=== PATIENT | female | born 2000 | race Two or more races ===

== ENCOUNTER → 2023-12-25 | Outpatient (CLI) | payer BC ==
[2023-12-25 10:33] LABS: Basophils # (auto) 0 10 ^3/uL (0-0.2); Basophils % (auto) 0.5 % (0.0-2.0); Eosinophils # (auto) 0 10 ^3/uL (0-0.8); Eosinophils % (auto) 0.6 % (0.0-7.0); Hemoglobin 13.2 g/dL (12.2-16.2); Lymphocytes # (auto) 1.6 10 ^3/uL (0.4-5.4); Lymphocytes % (auto) 21.8 % (10.0-50.0); Mean Corpuscular Hemoglobin 30.9 pg (28.0-32.0); Mean Corpuscular Hgb Conc. 33.9 g/dL (32.0-36.0); Mean Corpuscular Volume 91.3 fL (80.0-100.0); Monocytes # (auto) 0.6 10 ^3/uL (0-1.3); Monocytes % (auto) 8.1 % (0.0-12.0); Neutrophils # (auto) 5.1 10 ^3/uL (1.6-8.6); Platelet Count (auto) 309 10^3/uL (140-450); Red Blood Cells 4.28 10^6/uL (4.0-5.20); Red Cell Distribution Width 12.9 % (11.8-14.3); White Blood Cell 7.4 10^3/uL (4.4-10.8)
[2023-12-25 11:15] LABS: Alanine Aminotransferase 12 U/L (7-40); Albumin 4.6 g/dL (3.2-4.8); Alkaline Phosphatase 52 U/L (46-116); Anion Gap 6 (5-15); Aspartate Aminotransferase 12 U/L (13-40); Blood Urea Nitrogen 8 mg/dL (9-23); Carbon Dioxide 25 mmol/L (20-30); Chloride 105 mmol/L (98-107); Cholesterol 168 mg/dL (< 200); Glucose 86 mg/dL (74-106); HDL Cholesterol 69 mg/dL (40-59); LDL Cholesterol 89 mg/dL (< 100); Potassium 3.7 mmol/L (3.5-5.1); Sodium 136 mmol/L (136-145); Triglycerides 63 mg/dL (< 150)
[2023-12-25 11:16] LABS: Bilirubin, Total 0.7 mg/dL (0.2-1.0); Total Protein 7.3 g/dL (5.7-8.2)
[2023-12-25 11:18] LABS: Thyroid Stimulating Hormone 1.91 uIU/mL (0.358-3.74)
[2023-12-25 11:22] LABS: Amphetamine Screen, Urine Neg (NEGATIVE); Barbiturate Scree,Urine Neg (NEGATIVE); Benzodiazephine Screen, Urine Neg (NEGATIVE); Cocaine Screen, Urine Neg (NEGATIVE); Opiate Scree,Urine Neg (NEGATIVE)
[2023-12-25 11:23] LABS: Phencyclidine Screen, Urine Neg (NEGATIVE)
[2023-12-25 11:25] LABS: Beta HCG, Quantitative 14993.2 mIU/mL (1.5-4.2)
[2023-12-25 11:37] LABS: Cannabinoid Screen, Urine Neg (NEGATIVE)
[2023-12-26 07:06] LABS: RPR Non Reactive (Non Reactive)
[2023-12-26 08:06] LABS: Varicella Zoster IgG Antibody <135 index (Immune >165)
[2023-12-26 23:06] LABS: Chlamydia Trachomatis, NAA Negative (Negative); Neisseria gonorrhoeae, NAA Negative (Negative)
== END | disposition home or self-care (01) ==
LOC: LAB 10:00
PROVIDERS: ATTEND Obstetrics & Gynecology
DX: Z11.3 Encounter for screening for infections with a predominantly sexual mode of transmission (principal); N39.0 Urinary tract infection, site not specified
CPT/HCPCS: 36415; 80053; 80061; 80307; 83036; 84439; 84443; 84702; 85025; 86592; 86703; 86762; 86787; 86850; 86900; 86901; 87086; 87340

== ENCOUNTER → 2024-02-23 | Outpatient (CLI) | payer BC ==
[2024-02-23 07:55] LABS: Alanine Aminotransferase 20 U/L (7-40); Aspartate Aminotransferase 24 U/L (13-40)
== END | disposition home or self-care (01) ==
LOC: LAB 05:43
PROVIDERS: ATTEND Emergency Medicine
DX: L29.9 Pruritus, unspecified (principal)
CPT/HCPCS: 36415; 84450; 84460

== ENCOUNTER → 2024-05-21 | Outpatient (CLI) | payer BC ==
[2024-05-21 08:40] LABS: Basophils # (auto) 0.1 10 ^3/uL (0-0.2); Basophils % (auto) 0.6 % (0.0-2.0); Eosinophils # (auto) 0.1 10 ^3/uL (0-0.8); Hemoglobin 12.7 g/dL (12.2-16.2); Lymphocytes # (auto) 2.2 10 ^3/uL (0.4-5.4); Lymphocytes % (auto) 20.8 % (10.0-50.0); Mean Corpuscular Hemoglobin 31.8 pg (28.0-32.0); Mean Corpuscular Hgb Conc. 34.2 g/dL (32.0-36.0); Mean Corpuscular Volume 93.1 fL (80.0-100.0); Monocytes # (auto) 0.8 10 ^3/uL (0-1.3); Monocytes % (auto) 7.1 % (0.0-12.0); Neutrophils # (auto) 7.5 10 ^3/uL (1.6-8.6); Neutrophils % (auto) 70.5 % (37.0-80.0); Platelet Count (auto) 368 10^3/uL (140-450); Red Blood Cells 3.98 10^6/uL (4.0-5.20); Red Cell Distribution Width 12.9 % (11.8-14.3); White Blood Cell 10.6 10^3/uL (4.4-10.8)
[2024-05-21 08:57] LABS: Alanine Aminotransferase 32 U/L (7-40); Albumin 4.6 g/dL (3.2-4.8); Alkaline Phosphatase 100 U/L (46-116); Anion Gap 8 (5-15); BUN/Creatinine Ratio 11.1 (10.0-20.0); Calcium 10.1 mg/dL (8.7-10.4); Carbon Dioxide 26 mmol/L (20-31); Chloride 103 mmol/L (98-107); Glucose 82 mg/dL (74-106); Sodium 137 mmol/L (136-145)
[2024-05-21 08:58] LABS: Bilirubin, Total 0.5 mg/dL (0.2-1.0); Total Protein 7.1 g/dL (5.7-8.2)
[2024-05-21 09:04] LABS: Aspartate Aminotransferase 11 U/L (13-40); Blood Urea Nitrogen 7 mg/dL (9-23)
[2024-05-22 06:06] LABS: RPR Non Reactive (Non Reactive)
[2024-05-22 22:06] LABS: Chlamydia Trachomatis, NAA Negative (Negative); Neisseria gonorrhoeae, NAA Negative (Negative)
== END | disposition home or self-care (01) ==
LOC: LAB 08:27
PROVIDERS: ATTEND Obstetrics & Gynecology
DX: Z34.00 Encounter for supervision of normal first pregnancy, unspecified trimester (principal)
CPT/HCPCS: 36415; 80053; 82951; 83036; 85025; 86592; 86850; 86900; 86901

== ENCOUNTER → 2024-06-30 | Outpatient (CLI) | payer BC ==
[2024-06-30 14:19] LABS: Basophils # (auto) 0 10 ^3/uL (0-0.2); Basophils % (auto) 0.1 % (0.0-2.0); Eosinophils # (auto) 0 10 ^3/uL (0-0.8); Eosinophils % (auto) 0.4 % (0.0-7.0); Hematocrit 33.1 % (36.0-46.0); Lymphocytes # (auto) 1.6 10 ^3/uL (0.4-5.4); Lymphocytes % (auto) 13.3 % (10.0-50.0); Mean Corpuscular Hemoglobin 29.7 pg (28.0-32.0); Mean Corpuscular Hgb Conc. 33.4 g/dL (32.0-36.0); Monocytes % (auto) 8.8 % (0.0-12.0); Neutrophils # (auto) 9.1 10 ^3/uL (1.6-8.6); Neutrophils % (auto) 77.4 % (37.0-80.0); Platelet Count (auto) 348 10^3/uL (140-450); Red Blood Cells 3.72 10^6/uL (4.0-5.20); Red Cell Distribution Width 12.5 % (11.8-14.3); White Blood Cell 11.7 10^3/uL (4.4-10.8)
[2024-06-30 15:08] LABS: Alanine Aminotransferase 28 U/L (7-40); Albumin 4.1 g/dL (3.2-4.8); Anion Gap 7 (5-15); Aspartate Aminotransferase 19 U/L (13-40); Bilirubin, Total 0.4 mg/dL (0.2-1.0); Blood Urea Nitrogen 9 mg/dL (9-23); Calcium 9.8 mg/dL (8.7-10.4); Carbon Dioxide 27 mmol/L (20-31); Chloride 103 mmol/L (98-107); Glucose 104 mg/dL (74-106); Potassium 3.9 mmol/L (3.5-5.1); Sodium 137 mmol/L (136-145); Total Protein 6.4 g/dL (5.7-8.2)
[2024-06-30 15:18] LABS: Alkaline Phosphatase 132 U/L (46-116)
[2024-06-30 16:17] LABS: Creatinine, Urine 47.46 mg/dL (30.0-125.0)
[2024-06-30 16:58] LABS: Protein, Urine 7.3 mg/dL (1-14); Urine Protein/Creatinine Ratio 0.15
== END | disposition home or self-care (01) ==
LOC: LAB 14:01
PROVIDERS: ATTEND Obstetrics & Gynecology
DX: O14.90 Unspecified pre-eclampsia, unspecified trimester (principal); Z3A.00 Weeks of gestation of pregnancy not specified
CPT/HCPCS: 36415; 80053; 82570; 84156; 84550; 85025

== ENCOUNTER 2024-08-06 15:20 | Observation (INO) | payer BC ==
--- NOTE | 2024-08-06 16:27 | DVH ---
BIOPHYSICAL PROFILE HISTORY: NUCHAL X1 TECHNIQUE: Multiple transabdominal real-time grayscale sonographic images through the gravid uterus of the fetus with duplex Doppler color flow and M-mode spectral analysis FINDINGS: BIOPHYSICAL PROFILE: breathing score: 2 movement score: 2 tone score: 2 Quantitative KISHAN score: 2 (KISHAN: 18.1 Cm.) Total score: 8 The cervix not well-visualized Single live fetus in cephalic presentation. heart rate 131 beats per minute. Fundal placenta without previa or abruption Nuchal cord is noted extending once around the neck. IMPRESSION: Biophysical profile score: 8 Nuchal cord is noted extending once around the neck.
--- NOTE | 2024-08-07 06:22 | DVHDS2 ---
Physician Discharge Progress N Final Diagnosis: nuchal [id number] Operations or Procedures: Operations or Procedures nst,sono Condition on Discharge: Good Disposition: Home Discharge Instructions: Diet: Regular Activity: Light activity Medications: na Follow Up Care: Specialist: 2d Discharge Statement: "Patient was advised to return to the ER or call 911 if any headaches, di zziness, shortness of breath, chest pain, abdominal pain, bleeding, fevers, or worsening of medical condition. Patient was counseled about treatment plan, medications, possible side effects, patientverbalized understanding. All questions were answered to the best of my ability. This discharge took greater then 30 minutes in planning, reviewing documentation, counseling the patient, and discussing with other team members." Visit Coding OBGYN Date of Service: Aug 06, 2024 Billing Provider: ИВАН CORBETT DO TOW TRUCK DRIVER Common Visit Codes: [id number] INP/OBS CARE(HIGH) TOW TRUCK DRIVER Procedure Codes: 33033-73- NON-STRESS TEST ИВАН CORBETT DO Aug 07, 2024 06:22
[2024-08-07] MEDS ORDERED: DOCU-94 PO (07:28)
[2024-08-07] MEDS ORDERED: IBUP-1456 PO (07:28)
[2024-08-07] MEDS ORDERED: HYDR-4072 PO (07:28)
== END 2024-08-06 17:05 | disposition home or self-care (01) ==
LOC: LDRP 15:20 → UNDOADMOB 15:20 → LDRP 15:40 → UNDODISOB 17:05
PROVIDERS: ADMIT Obstetrics & Gynecology; ATTEND Obstetrics & Gynecology
DX: O69.81X0 Labor and delivery complicated by cord around neck, without compression, not applicable or unspecified (principal); Z3A.38 38 weeks gestation of pregnancy; Z98.890 Other specified postprocedural states; Z79.899 Other long term (current) drug therapy
CPT/HCPCS: 76818; 81002; 94760; G0378; 76819

== ENCOUNTER 2024-08-07 01:29 | Inpatient (IN) | payer BC ==
[2024-08-07] VITALS (23 sets, daily range): BP systolic 95–127; BP diastolic 50–77; PULSE 62–103; RESP 15–18; TEMP 98.3–98.6; O2SAT 94–97
[~2024-08-07] VITALS: Ht 165.1 cm; Wt 68.0 kg
[2024-08-07 02:59] LABS: Fern Testing Positive
[2024-08-07] MEDS ORDERED: LIDOCAINE 2%HCL (LOCAL ANESTH.) INJ 20ML MDV IJ PRN (03:30)
[2024-08-07] MEDS ORDERED: NALBUPHINE HCL 10 MG/1ml INJECTION IV PRN (03:30)
--- NOTE | 2024-08-07 03:34 | DVH ---
LIMITED OB ULTRASOUND > 14 WKS: HISTORY: leaking of fluid TECHNIQUE: Multiple real-time grayscale images of the gravid uterus with duplex Doppler color flow an d M-mode spectral analysis. TRANSDUCER: COMPARISON: August 06, 2024 FINDINGS: IUP single live fetus at 38 weeks 2 days by MARJORIE. heart rate 124 beats per minute KISHAN 18.3 cm compared with 18.1 on 08/06/2024. No evidence of placenta previa or abruption. IMPRESSION: 1. Grossly stable KISHAN of 18.1 cm without significant interval change when compared to prior exam. No evidence of placenta previa or abruption.
--- NOTE | 2024-08-07 03:36 | DVHHP ---
ADMIT DATE: 08/07/2024 CHIEF COMPLAINT: Spontaneous rupture of membrane. HISTORY OF PRESENT ILLNESS: The patient is a 24-year-old 1, para 0 with due date 08/18, estimated gestational age of 38 weeks, admitted for spontaneous rupture of membranes, pooling clear fluid, no vaginal bleeding. PAST MEDICAL HISTORY: None. PAST SURGICAL HISTORY: None. SOCIAL HISTORY: None. FAMILY HISTORY: None. OBSTETRIC AND GYNECOLOGIC HISTORY: Primigravid. REVIEW OF SYSTEMS: Consistent with HPI. ALLERGIES: No known drug allergies. PHYSICAL EXAMINATION: VITAL SIGNS: Stable, afebrile. HEENT: Within normal limits. CARDIOVASCULAR: Regular rate and rhythm. LUNGS: Clear to auscultation. BREASTS: Symmetrical. No masses. ABDOMEN: Gravid. Positive heart. PELVIC: Fingertip, thick, high. Gross pooling. EXTREMITIES: No clubbing, cyanosis or edema. IMPRESSION: Intrauterine at 38+ weeks with spontaneous rupture of membrane. PLAN: Admit. Informed consent obtained. We will proceed with Cytotec. Dominique Humphries DO MZ/HEM TID: [id number] RECEIPT: [id number]
[2024-08-07 04:18] LABS: Basophils # (auto) 0 10 ^3/uL (0-0.2); Basophils % (auto) 0.4 % (0.0-2.0); Eosinophils # (auto) 0.1 10 ^3/uL (0-0.8); Eosinophils % (auto) 1.1 % (0.0-7.0); Hematocrit 32.3 % (36.0-46.0); Hemoglobin 11.2 g/dL (12.2-16.2); Lymphocytes # (auto) 2.3 10 ^3/uL (0.4-5.4); Lymphocytes % (auto) 23.5 % (10.0-50.0); Mean Corpuscular Hemoglobin 29.9 pg (28.0-32.0); Mean Corpuscular Hgb Conc. 34.7 g/dL (32.0-36.0); Mean Corpuscular Volume 86.1 fL (80.0-100.0); Monocytes # (auto) 1.1 10 ^3/uL (0-1.3); Monocytes % (auto) 11.3 % (0.0-12.0); Neutrophils # (auto) 6.2 10 ^3/uL (1.6-8.6); Neutrophils % (auto) 63.7 % (37.0-80.0); Platelet Count (auto) 360 10^3/uL (140-450); Red Blood Cells 3.75 10^6/uL (4.0-5.20); Red Cell Distribution Width 13.5 % (11.8-14.3); White Blood Cell 9.7 10^3/uL (4.4-10.8)
[2024-08-07 04:31] LABS: Urine Bacteria MOD /hpf (None Seen); Urine Blood Negative /uL (Negative); Urine Clarity Turbid (Clear); Urine Color Colorless (Yellow); Urine Protein, UAD Negative (Negative); Urine Specific Gravity 1.007 (1.001-1.035); Urine Squamous Epithelial Cell MOD /hpf (<5); Urine Urobilinogen Normal (Negative); Urine WBC 25 /HPF (0-5)
[2024-08-07 04:34] LABS: INR 0.92 (0.9-1.15); Partial Thromboplastin Time 26.2 SEC (24.5-34.5); Prothrombin Time 9.8 sec (9.3-11.8)
[2024-08-07 04:37] LABS: Amphetamine Screen, Urine Neg (NEGATIVE); Barbiturate Scree,Urine Neg (NEGATIVE); Benzodiazephine Screen, Urine Neg (NEGATIVE); Cannabinoid Screen, Urine Neg (NEGATIVE); Cocaine Screen, Urine Neg (NEGATIVE); Opiate Scree,Urine Neg (NEGATIVE); Phencyclidine Screen, Urine Neg (NEGATIVE)
[2024-08-07 04:39] LABS: Alanine Aminotransferase 15 U/L (7-40); Albumin 4.1 g/dL (3.2-4.8); Alkaline Phosphatase 197 U/L (46-116); Anion Gap 9 (5-15); Aspartate Aminotransferase 17 U/L (13-40); BUN/Creatinine Ratio 11.9 (10.0-20.0); Bilirubin, Total 0.5 mg/dL (0.2-1.0); Blood Urea Nitrogen 7 mg/dL (9-23); Calcium 9.9 mg/dL (8.7-10.4); Carbon Dioxide 23 mmol/L (20-31); Chloride 105 mmol/L (98-107); Glucose 88 mg/dL (74-106); Potassium 3.8 mmol/L (3.5-5.1); Sodium 137 mmol/L (136-145); Total Protein 6.7 g/dL (5.7-8.2)
[2024-08-07] MEDS: WITCH HAZEL-GLYCERIN PAD TOP PRN (04:42)
[2024-08-07] MEDS: DERMOPLAST 60ML BOTTLE TOP PRN (04:42)
[2024-08-07] MEDS: PHISODERM TOP SOLN 240ML BTL TOP PRN (04:42)
[2024-08-07] MEDS: LACTATED RINGER'S 1,000 ML IV SCH ×2 (04:43→10:16)
[2024-08-07] MEDS: miSOPROStol 50 MCG per PRE-CUT 1/2 TAB PO PRN (05:00)
[2024-08-07] MEDS: LACTATED RINGER'S 1,000 ML IV ONE (06:00)
[2024-08-07] MEDS: ceFAZolin 2 GM/D5W50ml 50 ML IV ONE (06:03)
[2024-08-07] MEDS ORDERED: MORPHINE SULF PF 5 MG/10 ML VIAL ONE (06:07)
[2024-08-07] MEDS ORDERED: fentaNYL CITRATE 100 MCG/2 ML VL ONE (06:08)
[2024-08-07] MEDS ORDERED: KETOROLAC TROMETH 30 MG/ML 1ML VIAL ONE (06:08)
[2024-08-07] MEDS ORDERED: ePHEDrine SULFATE 50 MG/ML AMP ONE (06:08)
[2024-08-07] MEDS ORDERED: ONDANSETRON HCL 4 MG/2 ML VIAL ONE (06:08)
[2024-08-07] MEDS ORDERED: GLYCOPYRROLATE 0.2 MG/ML 1ML VIAL ONE (06:08)
[2024-08-07] MEDS ORDERED: oxyTOCIN 10 UNIT/ML 10ML VIAL ONE (06:08)
--- NOTE | 2024-08-07 06:23 | DVHHP ---
ADMIT DATE: 08/07/2024 CHIEF COMPLAINT: Nonreassuring heart tracing, repetitive variable deceleration and late deceleration. HISTORY OF PRESENT ILLNESS: The patient is a 24-year-old 1, para 0 with EDC 4/16, estimated gestational age of 38+ weeks, admitted for spontaneous rupture of membrane. Positive nuchal cord. The patient after admission had a prolonged bradycardia than repetitive decels, subsequently the patient is taken for primary . The patient is remote from delivery. PAST MEDICAL HISTORY: None. PAST SURGICAL HISTORY: None. SOCIAL HISTORY: None. FAMILY HISTORY: None. OBSTETRIC AND GYNECOLOGIC HISTORY: Primigravid. ALLERGIES: No known drug allergies. REVIEW OF SYSTEMS: Consistent with HPI. PHYSICAL EXAMINATION: VITAL SIGNS: Stable, afebrile. HEENT: Within normal limits. CARDIOVASCULAR: Regular rate and rhythm. LUNGS: Clear to auscultation. BREASTS: Symmetrical. No masses. ABDOMEN: Gravid. PELVIC: Cervix closed, thick, high. EXTREMITIES: No clubbing, cyanosis or edema. IMPRESSION: * Intrauterine at 38 weeks with spontaneous rupture of membrane, nonreassuring heart tracing. * Nuchal cord. PLAN: Primary low transverse section. Informed consent obtained. Risks and complications of surgery including infection, bleeding, hematoma formation, injury to bowel, bladder, surrounding organs, possibility of DVT, pulmonary embolism, risk of anesthesia discussed with the patient. Options reviewed. All questions answered. The patient fully understands. She wishes to proceed with planned procedure. DO ALMA ROSA Valentin TID: [id number] RECEIPT: [id number]
--- NOTE | 2024-08-07 07:21 | DVHOP2 ---
Operative Report DATE OF OPERATION: 08/07/24 PREOPERATIVE DIAGNOSES: iup at 38wks w/srom ,nonreassuring fht,fetus at risk POSTOPERATIVE DIAGNOSES: same,nuchal cordx3 SURGEON: Dominique Humphries D.O./charles ANESTHESIOLOGIST: liz TYPE OF ANESTHESIA : spinal CONSENT: The patient was informed of the risks and benefits of the procedure. The patient was informed of the risks and benefits of the procedure. These include but are not limited to , complications of anesthesia, postoperative infection, incomplete relief of symptoms, recurrence of symptoms, damage to blood vessels, nerves and tendons, deep venous thrombosis, pulmonary embolism and possible need for repeat surgery in the future. FINDINGS: Baby [b] with Apgars of [9] and [9]. Grossly normal appearing tubes and ovaries.triple nuchal cord PROCEDURES: Primary low transverse section. PROCEDURE IN DETAIL: The patient was taken to the operating room. She already had an epidural in place. She was then placed in supine position with a leftward tilt. A Pfannenstiel skin incision was made 2 cm above the symphysis pubis. This incision was carried to the underlying layer of fascia. The fascia was nicked in the midline. The incision was extended laterally. The superior aspect of the fascial incision was grasped and elevated. The same procedure was done to the inferior aspect of the fascial incision. The rectus muscles were then in the midline. Peritoneum was identified and entered. Peritoneal incision was extended superiorly and inferiorly with good visualization of the bladder. Bladder blade was inserted. Vesicouterine peritoneum was identified and entered. Lower uterine segment was incised in a transverse fashion. The was delivered from vertex presentation.there was triple nuchal cord. was baby [b] with Apgars [9] and [9]. Placenta was then removed manually. Uterus was exteriorized and cleared of all clots and debris. The incision was repaired using 0 Vicryl in a double-layered fashion. No bleeding was noted. Uterus was then returned to the abdomen. The gutters were cleared off all clots and debris. Peritoneum was closed using 0 Vicryl, fascia was closed using 0 Maxon, and skin was closed using sven. The patient tolerated the procedure well. She was taken to the recovery room in stable condition. ESTIMATED BLOOD LOSS: Estimated blood loss was noted to be 500 mL. Visit Coding OBN Date of Service: Aug 07, 2024 Billing Provider: DOMINIQUE HUMPHRIES DO PRESSURE SUPERVISOR Common Visit Codes: 25841-FGV/OBS SAME DATE (HIGH) PRESSURE SUPERVISOR Procedure Codes: [id number] DELIVERY ONLY DOMINIQUE HUMPHRIES DO Aug 07, 2024 07:21
--- NOTE | 2024-08-07 07:24 | POSTOP ---
Post-Operative Note Post-Operative Note Preop Diagnosis iup at 38wks w/srom, nonreasuring fht,fetus at risk Postop Diagnosis: same,triple nuchal cord Operation performed pltcs Specimen baby boy,apgars 9-9,triple nuchal cord Anesthesia: Regional Anesthesiologist: liz Blood Loss(fluid mgmt) 500ml Surgeon Иван Humphries Glue Machine Operator charles Implant na Complications & Mgmt none Date 08/07/24 Time 07:22 Visit Coding OBGYN Date of Service: Aug 07, 2024 Billing Provider: ИВАН HUMPHRIES DO CESSATION SYSTEMS OUTREACH SPECIALIST Common Visit Codes: 93957-FGN/OBS SAME DATE (HIGH) ИВАН HUMPHRIES DO Aug 07, 2024 07:24
[2024-08-07] MEDS ORDERED: HYDR-4072 PO (07:28)
[2024-08-07] MEDS ORDERED: DOCU-94 PO (07:28)
[2024-08-07] MEDS ORDERED: IBUP-1456 PO (07:28)
[2024-08-07] MEDS ORDERED: ceFAZolin 1GM/50ML 50 ML IV SCH (07:30)
[2024-08-07] MEDS ORDERED: ONDANSETRON HCL 4 MG/2 ML VIAL IV PRN ×3 (07:30→08:45)
[2024-08-07] MEDS: GUM (CHEWING) 1 GUM CHEW CHEW ONE (07:30)
[2024-08-07] MEDS: LACT. RINGERS/OXYTOCIN 20UNITS 1,000 ML IV ONE (07:30)
[2024-08-07] MEDS ORDERED: DexAMETHasone SOD PHOS 10MG/1ML VIAL INJ IV PRN (08:00)
[2024-08-07] MEDS ORDERED: KETOROLAC TROMETH 30 MG/ML 1ML VIAL IV PRN (08:00)
[2024-08-07] MEDS ORDERED: NALOXONE HCL 0.4 MG/ML VIAL IV PRN (08:00)
[2024-08-07] MEDS ORDERED: diphenhdrAMINE HCL 50 MG/1 ML VL IV PRN (08:00)
[2024-08-07] MEDS: ceFAZolin 1GM/50ML 50 ML IV SCH (14:15)
[2024-08-07] MEDS: ACETAMINOPHEN IV 1000 MG/100ML (10MG/ML) IV PRN (14:58)
[2024-08-07 21:16] LABS: Basophils # (auto) 0 10 ^3/uL (0-0.2); Basophils % (auto) 0.2 % (0.0-2.0); Eosinophils # (auto) 0 10 ^3/uL (0-0.8); Eosinophils % (auto) 0.1 % (0.0-7.0); Hematocrit 27.5 % (36.0-46.0); Hemoglobin 9.4 g/dL (12.2-16.2); Lymphocytes # (auto) 1.9 10 ^3/uL (0.4-5.4); Lymphocytes % (auto) 14.3 % (10.0-50.0); Mean Corpuscular Hemoglobin 29.8 pg (28.0-32.0); Mean Corpuscular Hgb Conc. 34.2 g/dL (32.0-36.0); Monocytes # (auto) 1.4 10 ^3/uL (0-1.3); Monocytes % (auto) 10.6 % (0.0-12.0); Neutrophils % (auto) 74.8 % (37.0-80.0); Platelet Count (auto) 309 10^3/uL (140-450); Red Blood Cells 3.16 10^6/uL (4.0-5.20); Red Cell Distribution Width 13.3 % (11.8-14.3); White Blood Cell 13.4 10^3/uL (4.4-10.8)
[2024-08-08] VITALS (12 sets, daily range): BP systolic 95–118; BP diastolic 51–100; PULSE 65–100; RESP 16–20; TEMP 97.5–98.6; O2SAT 92–99
[2024-08-08] MEDS: LACTATED RINGER'S 1,000 ML IV SCH (06:30)
[2024-08-08] MEDS ORDERED: BISACODYL 10 MG RECT SUPP PR PRN (06:30)
[2024-08-08] MEDS ORDERED: IBUPROFEN 800 MG TAB PO PRN (06:30)
[2024-08-08] MEDS ORDERED: HYDROcodone-ACET 5/325MG TAB PO PRN ×2 (06:30)
[2024-08-08 07:45] LABS: Basophils # (auto) 0 10 ^3/uL (0-0.2); Basophils % (auto) 0.3 % (0.0-2.0); Eosinophils # (auto) 0.1 10 ^3/uL (0-0.8); Eosinophils % (auto) 0.6 % (0.0-7.0); Hematocrit 29.4 % (36.0-46.0); Hemoglobin 9.8 g/dL (12.2-16.2); Mean Corpuscular Hemoglobin 29.1 pg (28.0-32.0); Mean Corpuscular Hgb Conc. 33.4 g/dL (32.0-36.0); Mean Corpuscular Volume 87.1 fL (80.0-100.0); Monocytes # (auto) 1.2 10 ^3/uL (0-1.3); Monocytes % (auto) 10.3 % (0.0-12.0); Neutrophils # (auto) 8.5 10 ^3/uL (1.6-8.6); Neutrophils % (auto) 71.8 % (37.0-80.0); Nucleated Red Blood Cells % 0.1 %; Platelet Count (auto) 319 10^3/uL (140-450); Red Blood Cells 3.38 10^6/uL (4.0-5.20); Red Cell Distribution Width 13.3 % (11.8-14.3); White Blood Cell 11.8 10^3/uL (4.4-10.8)
--- NOTE | 2024-08-08 08:37 | DVHPN2 ---
Chief Complaints Patient reports: No new complaints Nursing reports: No new complaints Objective Vitals Vital Signs Date Time Temp Pulse Resp B/P (MAP) Pulse Ox O2 Delivery O2 Flow Rate FiO2 08/08/24 07:00 Room Air 0.0 08/08/24 07:00 97.8 81 18 97/56 (70) 96 97.8 Medications Current Medications Medications (Trade) Dose Ordered Sig/Anna Route PRN Reason Start Time Stop Time Status Last Admin Acetaminophen/ Hydrocodone Bitart ([place] 5/325MG Tab) 1 tab Q4HPRN PRN PO FOR PAIN 1-6 08/08/24 06:30 Acetaminophen/ Hydrocodone Bitart ([place] 5/325MG Tab) 2 tab Q4HPRN PRN PO FOR PAIN 7-10 08/08/24 06:30 Bisacodyl (Dulcolax Suppository) 10 mg DAILYP PRN [place] FOR CONSTIPATION 08/08/24 06:30 Cefazolin Sodium 50 ml @ 100 mls/hr Q8H IV 08/07/24 08:45 08/09/24 08:00 08/08/24 07:47 Dimethicone (Mylicon Tab) 80 mg QID PO 08/08/24 12:00 Docusate Sodium (Colace Capsule) 100 mg Q12HR PO 08/08/24 10:00 Ibuprofen (Motrin Tablet) 800 mg Q8HP PRN PO BREAKTHROUGH PAIN 08/08/24 06:30 Lactated Ringer's 1,000 ml @ 100 mls/hr Q10H IV 08/08/24 06:30 Ondansetron HCl (Zofran) 4 mg Q4HP PRN IV NAUSEA / VOMITING 08/07/24 08:45 General: Normal Lungs: Normal Cardiovascular: Normal Abdominal: Soft Extremities: Normal Studies Laboratory Tests 08/08/24 07:27 08/07/24 03:46 Test 08/07/24 03:46 Range/Units Serum Glucose 88 74-106 mg/dL Ass/Plan Assessment S/P PCS Plan SUPPORTIVE CARE Visit Coding OBGYN Date of Service: Aug 08, 2024 Billing Provider: ИВАН CORBETT DO HASSOCK MAKER Common Visit Codes: [id number] INP/OBS CARE(HIGH) ИВАН CORBETT DO Aug 08, 2024 08:37
[2024-08-08] MEDS: DOCUSATE SOD 100 MG CAP PO SCH (10:48)
[2024-08-08] MEDS: guaiFENesin-DM 100/10mg/5ml SYR PO PRN (10:48)
[2024-08-08] MEDS: SIMETHICONE 80 MG CHEWABLE TABLET PO SCH (11:49)
[2024-08-08] MEDS: ACETAMINOPHEN 325 MG TAB PO PRN (18:20)
[2024-08-09 03:00] VITALS: BP 104/69; PULSE 80; RESP 16; TEMP 98.2; O2SAT 97
--- NOTE | 2024-08-09 05:47 | DVHPN2 ---
Progress Note Date Seen: Aug 09, 2024 Subjective S: Lochia minimal. Regular diet well tolerated. Ambulating and voiding well w/o feeling dizzy or lightheaded. Pain relieved with analgesics. Passing flatus but no BM yet. w/o problem Desires and Requests to be discharged today vital signs Vital Sign Date Time Temp Pulse Resp B/P (MAP) Pulse Ox O2 Delivery O2 Flow Rate FiO2 08/09/24 03:00 98.2 80 16 104/69 (81) 97 98.2 08/08/24 19:06 Room Air 08/08/24 07:00 0.0 Total Intake and Output 08/08/24 08/08/24 08/09/24 14:59 22:59 06:59 Output Total 1300 ml 1200 ml Balance -1300 ml -1200 ml medications Current Medications Medications Dose Ordered Sig/Anna Route Start Time Stop Time Status Last Admin Dose Admin Nalbuphine HCl 10 mg Q4HP PRN IV 08/07/24 03:30 Cancel Witch Britany 1 pad PRN PRN TOP 08/07/24 03:30 08/07/24 04:42 1 PAD Sodium Lauryl Sulfate 240 ml PRN PRN TOP 08/07/24 03:30 08/07/24 04:42 240 ML Benzocaine 1 applic PRN PRN TOP 08/07/24 03:30 08/07/24 04:42 1 APPLIC Lidocaine HCl 20 ml ONCE PRN IJ 08/07/24 03:30 Cancel Lactated Ringer's 1,000 ml @ 125 mls/hr Q8H IV 08/07/24 06:00 08/07/24 20:54 125 MLS/HR Diphenhydramine HCl 25 mg Q4HP PRN IV 08/07/24 08:00 Ketorolac Tromethamine 30 mg Q6HP PRN IV 08/07/24 08:00 08/12/24 07:59 Ondansetron HCl 4 mg Q4HP PRN IV 08/07/24 08:45 Cefazolin Sodium 50 ml @ 100 mls/hr Q8H IV 08/07/24 08:45 08/09/24 08:00 08/09/24 01:26 100 MLS/HR Lactated Ringer's 1,000 ml @ 100 mls/hr Q10H IV 08/08/24 06:30 Docusate Sodium 100 mg Q12HR PO 08/08/24 10:00 08/08/24 21:49 100 MG Dimethicone 80 mg QID PO 08/08/24 12:00 08/08/24 21:49 80 MG Bisacodyl [address] 08/08/24 06:30 Ibuprofen 800 mg Q8HP PRN PO 08/08/24 06:30 Acetaminophen/ Hydrocodone Bitart 1 tab Q4HPRN PRN PO 08/08/24 06:30 Acetaminophen/ Hydrocodone Bitart 2 tab Q4HPRN PRN PO 08/08/24 06:30 Guaifenesin/ Dextromethorphan 10 ml Q4HP PRN PO 08/08/24 08:45 08/08/24 19:59 10 ML Acetaminophen 650 mg Q4HP PRN PO 08/08/24 18:15 08/09/24 01:26 650 MG laboratory and microbiology Laboratory Tests 08/08/24 07:27 08/07/24 03:46 Test 08/07/24 03:46 Range/Units Serum Glucose 88 74-106 mg/dL Objective O: A&O x3 NAD. Afebrile, VSS Chest: heart and lung sounds normal. Breasts: Nipples intact w/o cracks or soreness Abdomen: normal BS, soft, non-tender, no rebound or guarding, fundus firm @ U- 1, Lower abdominal Incision site with Sylke dressing on, same clean, dry and intact. No edema, erythema or induration Extremities: no edema or tenderness Lochia - minima Assessment/Plan 24 yo now Post operative & ppd #2 s/p Primary Section. Anemia doing well. Blood Type: B Rh: Positive Breast feeding g Rubella Immune Pain control with oral medications Bowel regimen: Increase fluid intake and fiber in diet, Laxative PRN PP BCM Plan: Male Condoms Discharge plan: May discharge home later today if condition remains stable Plan discussed with: Patient, Spouse Visit Coding OBGYN Date of Service: Aug 09, 2024 Billing Provider: DORIAN RODRÍGUEZ CNM TURBINE ENGINEER Common Visit Codes: [id number] INP/OBS CARE(HIGH) DORIAN RODRÍGUEZ CNM Aug 09, 2024 05:47
--- NOTE | 2024-08-09 06:03 | DVHDS2 ---
Discharge Summary Date of Admission Aug 07, 2024 at 03:10 Date of Discharge: Aug 09, 2024 Admitting Diagnosis IUP at 38w 2d [facility] Labs/Diagnostic Data: Laboratory Results Test 08/08/24 07:27 08/07/24 03:46 08/07/24 01:58 08/07/24 01:35 White Blood Count 11.8 10^3/uL (4.4-10.8) Red Blood Count 3.38 10^6/uL (4.0-5.20) Hemoglobin 9.8 g/dL (12.2-16.2) Hematocrit 29.4 % (36.0-46.0) Mean Corpuscular Volume 87.1 fL (80.0-100.0) Mean Corpuscular Hemoglobin 29.1 pg (28.0-32.0) Mean Corpuscular Hemoglobin Concent 33.4 g/dL (32.0-36.0) Red Cell Distribution Width 13.3 % (11.8-14.3) Platelet Count 319 10^3/uL (140-450) Mean Platelet Volume 7.7 fL (6.9-10.8) Neutrophils (%) (Auto) 71.8 % (37.0-80.0) Lymphocytes (%) (Auto) 17.0 % (10.0-50.0) Monocytes (%) (Auto) 10.3 % (0.0-12.0) Eosinophils (%) (Auto) 0.6 % (0.0-7.0) Basophils (%) (Auto) 0.3 % (0.0-2.0) Neutrophils # (Auto) 8.5 10 ^3/uL (1.6-8.6) Lymphocytes # (Auto) 2.0 10 ^3/uL (0.4-5.4) Monocytes # (Auto) 1.2 10 ^3/uL (0-1.3) Eosinophils # (Auto) 0.1 10 ^3/uL (0-0.8) Basophils # (Auto) 0 10 ^3/uL (0-0.2) Nucleated Red Blood Cells 0.1 % Prothrombin Time 9.8 sec (9.3-11.8) Prothrombin Time INR 0.92 (0.9-1.15) Activated Partial Thromboplast Time 26.2 SEC (24.5-34.5) Sodium Level 137 mmol/L (136-145) Potassium Level 3.8 mmol/L (3.5-5.1) Chloride Level 105 mmol/L (98-107) Carbon Dioxide Level 23 mmol/L (20-31) Anion Gap 9 (5-15) Blood Urea Nitrogen 7 mg/dL (9-23) Creatinine 0.59 mg/dL (0.550-1.02) Glomerular Filtration Rate Calc 127 mL/min (>90) BUN/Creatinine Ratio 11.9 (10.0-20.0) Serum Glucose 88 mg/dL (74-106) Calcium Level 9.9 mg/dL (8.7-10.4) Total Bilirubin 0.5 mg/dL (0.2-1.0) Aspartate Amino Transferase (AST) 17 U/L (13-40) Alanine Aminotransferase (ALT) 15 U/L (7-40) Alkaline Phosphatase 197 U/L (46-116) Total Protein 6.7 g/dL (5.7-8.2) Albumin 4.1 g/dL (3.2-4.8) Treponema pallidum Antibody Non-reactive (Negative) Hepatitis C Antibody Negative (Negative) Amniotic Fluid Ferning Test Positive Placental [id number] Positive Urine Color Colorless (Yellow) Urine Clarity Turbid (Clear) Urine pH 7.0 (5.0-9.0) Urine Specific [place] 1.007 (1.001-1.035) Urine Protein Negative (Negative) Urine Ketones Negative (Negative) Urine Blood Negative /uL (Negative) Urine Nitrite Negative (Negative) Urine Bilirubin Negative (Negative) Urine Urobilinogen Normal mg/dL (Negative) Urine Leukocyte Esterase 1+ /uL (Negative) Urine RBC 5 /hpf (0 - 4) Urine Microscopic WBC 25 /HPF (0-5) Urine Squamous Epithelial Cells Mod /hpf (<5) Urine Bacteria Mod /hpf (None Seen) Urine Glucose Normal mg/dL (Normal) Urine Opiates Screen Neg (NEGATIVE) Urine Fentanyl Screen Neg (NEGATIVE) Urine Barbiturates Screen Neg (NEGATIVE) Urine Phencyclidine Screen Neg (NEGATIVE) Urine Amphetamines Screen Neg (NEGATIVE) Urine Benzodiazepines Screen Neg (NEGATIVE) Urine Cocaine Screen Neg (NEGATIVE) Urine Cannabinoids Screen Neg (NEGATIVE) Other Laboratory Tests 08/08/24 07:27 08/07/24 03:46 Brief Hx & Hospital Course: 24yo G1 Admitted on 08/07/24 at 38w 2d for SROM. Had primary section for non- reassuring FHR Tracing not improving with usual interventions. Triple nuchal cord noted at delivery. See Operative report for detaild. Maternal course uneventful, and meeting all milestones Operations or Procedures Primary section for Intolerance to labor Condition at Discharge: Stable Final Diagnosis/Problems List same,triple nuchal cord Term Delivery by Section Secondary Diagnosis: Anemia Discharge Disposition: Home Discharge Instruct/Medications Diet: Regular Diet comment: Diet: Routine regular diet rich in fiber, protein, iron and vitamin C with adequate fluid intake. Activity: No Restrictions, As Tolerated Activity comment: Activity: Advance as tolerated. No heavy lifting, pushing or straining. Pelvic rest x 6weeks Balance activities with rest periods Medications: Ibuprofen 600mg every 6 hours as needed for pain. Continue Vitamin and iron Discharge Statement: Post operative and self care instructions given. emergency signs and symptoms including pre-eclampsia precautions and signs of PPD reviewed with patient. Follow up with OB Provider in 1 week "Patient was advised to return to the ER or call 911 if any headaches, dizziness, shortness of breath, chest pain, abdominal pain, bleeding, fevers, or worsening of medical condition. Patient was counseled about treatment plan, medications, possible side effects, patientverbalized understanding. All questions were answered to the best of my ability. This discharge took greater then 30 minutes in planning, reviewing documentation, counseling the patient, and discussing with other team members." ASSESSMENT ASSESSMENT Hospital Course 24yo G1 Admitted on 08/07/24 at 38w 2d for SROM. Had primary section for non- reassuring FHR Tracing not improving with usual interventions. Triple nuchal cord noted at delivery. See Operative report for detail. Maternal course uneventful, and meeting all milestones Assessment same,triple nuchal cord Term Delivery by Section Anemia Visit Coding OBGYN Date of Service: Aug 09, 2024 Billing Provider: DORIAN RODRÍGUEZ CNM FOUNTAIN ATTENDANT Common Visit Codes: 26540-XTQ/OBS DISCH DAY <30MIN DORIAN RODRÍGUEZ CNM Aug 09, 2024 06:03
[2024-08-09 07:13] VITALS: BP 110/70; PULSE 77; RESP 16; TEMP 97.9; O2SAT 97
[2024-08-09 11:00] VITALS: BP 108/71; PULSE 93; RESP 16; TEMP 98.6; O2SAT 97
[2024-08-09 15:00] VITALS: BP 109/70; PULSE 88; RESP 16; TEMP 98.5; O2SAT 98
== END 2024-08-09 17:34 | disposition home or self-care (01) | DRG 788 ==
LOC: LDRP 01:29 → OBSVTOIN 03:10 → LDRP 03:11
PROVIDERS: ADMIT Obstetrics & Gynecology; ATTEND Obstetrics & Gynecology
PROC: 10D00Z1 Extraction of Products of Conception, Low, Open Approach (ICD-10-PCS; principal; 2024-08-07 06:27)
DX: O69.81X0 Labor and delivery complicated by cord around neck, without compression, not applicable or unspecified (principal); O76 Abnormality in fetal heart rate and rhythm complicating labor and delivery; Z37.0 Single live birth; Z3A.38 38 weeks gestation of pregnancy; O99.02 Anemia complicating childbirth
CPT/HCPCS: 36415; 76815; 80053; 80307; 81001; 81002; 84112; 85025; 85610; 85730; 86780; 86803; 86850; 86900; 86901; 94760; 94762; 96360; 96361; 96365; 96366; G0378; J0131; J1885; J2405; J2590